=== PATIENT | male | born 1970 | race Caucasian/White ===

== ENCOUNTER 2017-07-01 18:18 | Emergency (ER) | payer OTHER ==
[~2017-07-01] VITALS: Ht 177.8 cm; Wt 98.4 kg
[2017-07-01 18:55] VITALS: Ht 177.8 cm; Wt 98.4 kg
[2017-07-02 01:58] VITALS: BP 135/85
== END 2017-07-02 01:58 | disposition home or self-care (01) ==
LOC: ED 18:18
DX: S90.812A Abrasion, left foot, initial encounter (principal); X58.XXXA Exposure to other specified factors, initial encounter; Y93.89 Activity, other specified; Y92.89 Other specified places as the place of occurrence of the external cause; Y99.8 Other external cause status
CPT/HCPCS: 82962; J1885